=== PATIENT | female | born 1995 | race Two or more races ===

== ENCOUNTER 2024-03-07 15:24 | Emergency (ER) | payer OTHER, SELFPAY ==
[2024-03-07 15:26] VITALS: BMI 18.7
[2024-03-07 15:44] VITALS: BP 115/77; PULSE 72; RESP 20; TEMP 36.9; O2SAT 98
--- NOTE | 2024-03-07 16:39 | PD.EDDENTL ---
ED Dental RME/HPI General Chief complaint: Dental/Oral/Throat Stated complaint: Lip blisters x 3 days Time Seen by Provider: 03/07/24 16:39 Arrival date/time: 03/07/24 15:24 This is a 28-year-old female that comes in with complaints of mild right sided facial swelling. Patient has 2 pimples on the right side of upper lip not crossing the vermilion border. Patient currently breast-feeding. Related Data Previous Rx's ?Medication ?Instructions ?Recorded Acetaminophen ER * (TYLENOL ER *) 650 mg PO Q8HR PRN PAIN OR FEVER > 08/01/16 101 ##30 ibuprofen 600 mg tablet 600 mg PO Q6HR PRN PAIN OR FEVER > 08/01/16 101 #30 tabs Allergies Allergy/AdvReac Type Severity Reaction Status Date / Time NKA* Allergy Uncoded 08/01/16 14:41 Review of Systems Review of Systems Systems Reviewed: All systems reviewed, normal except as documented Past Medical History Past Medical History Comments PMH COMMENT: denies ED Exam General General appearance: Present alert and in no apparent distress Head Head exam: Present atraumatic Eye Eye exam: Present normal appearance, PERRL and EOMI ENT ENT exam: Present mucous membranes moist and other (erythema around right upper lip, mild facial swelling ) Neck Neck exam: Present normal inspection, full ROM and trachea midline Chest Chest inspection: Present normal inspection and symmetric chest wall rise Respiratory Respiratory exam: Present normal lung sounds bilaterally Cardiovascular Cardiovascular exam: Present regular rate, normal rhythm and normal heart sounds Abdominal Exam Abdominal exam: Present soft Extremities Exam Extremities exam: Present normal inspection and full ROM Back Exam Back exam: Present normal inspection and full ROM Neurological Exam Neurological exam: Present alert, oriented X3 and CN II-XII intact Psychiatric Psychiatric exam: Present normal affect and normal mood Skin Skin exam: Present warm, dry, intact and normal color Course Quality Measures none Orders Category Date Time Status Acetaminophen Tab [Tylenol ES Tab] Med 03/07/24 16:55 Discontinued 1,000 mg PO X1 ONE Ibuprofen Tab [Motrin Tab] Med 03/07/24 16:55 Discontinued 800 mg PO X1 ONE cefTRIAXone [Rocephin] 1,000 mg Med 03/07/24 16:54 Discontinued Lidocaine 1% 20 ml [Xylocaine 1% 20 ML] 2.1 ml IM X1 Vital Signs Vital signs: Vital Signs Temperature 98.4 F 03/07/24 15:44 Pulse Rate 72 03/07/24 15:44 Respiratory Rate 20 03/07/24 15:44 Blood Pressure 115/77 03/07/24 15:44 Pulse Oximetry (%) 98 03/07/24 15:44 Oxygen Delivery Method Room Air 03/07/24 15:44 Dental / Oral MDM Narrative MDM Narrative:: This is a 28-year-old female that comes in with complaints of mild right sided facial swelling. Patient has 2 pimples on the right side of upper lip not crossing the vermilion border. Patient currently breast-feeding. Will treat for cellulitis patient given Tylenol and ibuprofen for pain. Patient told to follow-up with primary provider in 1 to 2 days. Come back to the emergency room if symptoms change or worsen. Patient data External records reviewed:: [facility] previous records Clinical information provided by:: patient Social determinants that could affect healthcare access:: none Patient has the following chronic illnesses:: None How is presenting disease/condition affected by chronic disease/condition?: no chronic disease Evaluation data The following diagnostics were reviewed and interpreted by me:: other (specify) (None) Lab and/or radiology exams considered but not ordered:: None Interpretation Summary: See note Medications / Prescriptions Medications or Prescriptions considered but not ordered:: None Medication administrations:: Medication Administration History Discontinued Medications Acetaminophen (Acetaminophen 500 Mg Tablet) 1,000 mg PO X1 ONE Stop: 03/07/24 16:56 Last Admin: 03/07/24 17:28 Dose: 1,000 mg Documented By: GABRIELLE Ceftriaxone Sodium 1,000 mg/ (Lidocaine HCl 2.1 ml) 0 mg IM X1 ONE Stop: 03/07/24 16:55 Last Admin: 03/07/24 17:28 Dose: 1,000 mg Documented By: GABRIELLE Ibuprofen (Ibuprofen Tab 400 Mg Tablet) 800 mg PO X1 ONE Stop: 03/07/24 16:56 Last Admin: 03/07/24 17:28 Dose: 800 mg Documented By: GABRIELLE See [facility] Consultations Consultation(s) initiated? (list below): No Diagnosis Most likely diagnosis given after review of the tests above:: Cellulitis Admission Indicated Admission indicated?: not indicated Admission Request Was there a request for admission?: No Disposition Plan Disposition Plan: Discharge Discharge Attestation Discharge Attestation: The patient and all family members were given an opportunity to ask questions and understood the discharge instructions. Discharge instructions specifically effects, indications for sooner follow up or return to the emergency department, and the expected course of current diagnosis. Patient condition: Stable Discharge Plan Plan Patient Disposition: HOME (Self Care) Patient condition on transfer: Stable Prescriptions/Referrals Prescriptions/Med Rec: No Action Acetaminophen ER * (TYLENOL ER *) 650 MG TABLET.ER 650 mg PO Q8HR PRN (Reason: PAIN OR FEVER > 101) Qty: 30 0RF ibuprofen 600 MG tablet 600 mg PO Q6HR PRN (Reason: PAIN OR FEVER > 101) Qty: 30 0RF Problem List Clinical Impression: Cellulitis Patient/Caregiver Discharge Instructions Discharge Activity: activity as tolerated Education Materials: ED Cellulitis Additional Instructions: May use warm compresses to affected area every 4 hours. Take antibiotics as prescribed. Please follow-up with primary provider in 1 to 2 days. Print Language: Syriac Stand Alone Forms: [place] Award Info., Patient Portal Info Letter PA/CHARBEL Supervising Physician PA/CHARBEL Supervising Physician: solitario
[2024-03-07] MEDS: ACETAMINOPHEN 500 MG TABLET 1000 MG PO (17:28)
[2024-03-07] MEDS: cefTRIAXone 1,000 MG, LIDOCAINE 1% 20 ML 2.1 ML IM (17:28)
[2024-03-07] MEDS: IBUPROFEN TAB 400 MG TABLET 800 MG PO (17:28)
== END 2024-03-07 17:36 | disposition home or self-care (01) ==
PROVIDERS: Emergency Provider Emergency Medicine
DX: K13.0 Diseases of lips (principal)
CPT/HCPCS: 96372; 99283; J0696; J3490; A9270